=== PATIENT | male | born 2000 | race Caucasian/White ===

== ENCOUNTER 2023-01-15 11:30 | Emergency (ER) | payer OTHER ==
[~2023-01-15] VITALS: Ht 170.2 cm; Wt 79.2 kg
[2023-01-15 11:32] VITALS: BP 126/69; TEMP 98.3; O2SAT 97
== END 2023-01-15 13:30 | disposition home or self-care (01) ==
LOC: M ED 11:30
DX: M25.461 Effusion, right knee (principal); Y92.838 Other recreation area as the place of occurrence of the external cause; Y93.83 Activity, rough housing and horseplay